=== PATIENT | male | born 1970 | race Caucasian/White ===

== ENCOUNTER 2017-05-27 16:17 | Emergency (ER) | payer OTHER ==
[2017-05-27 16:17] VITALS: BMI 38.9
[2017-05-27 16:26] VITALS: BP 133/79; PULSE 98; RESP 20; TEMP 98; O2SAT 98
[2017-05-27 17:07] LABS: BASO # 0.1 K/uL (0.0-0.2); EOS # 0.2 K/uL (0.0-0.7); EOS % 2.6 % (0.0-4.0); HEMATOCRIT 47.2 % (35.0-51.0); LYMPH # 3.6 K/uL (1.0-4.3); LYMPH % 42.6 % (20.0-40.0); MEAN CORPUSCULAR HEMOGLOBIN 28.5 pg (27.0-31.0); MEAN CORPUSCULAR HGB CONC 33.2 g/dL (33.0-37.0); MEAN PLATELET VOLUME 10.9 fl (7.2-11.7); MONO # 0.6 K/uL (0.0-0.8); MONO % 7.6 % (0.0-10.0); NEUT # 3.9 K/uL (1.8-7.0); NEUT % 46.2 % (50.0-75.0); NRBC % 0.2 % (0.0-0.0); RED CELL DISTRIBUTION WIDTH 14.7 % (11.5-14.5); WHITE BLOOD COUNT 8.4 K/uL (4.8-10.8)
[2017-05-27 17:16] LABS: ALB/GLOB RATIO 1.4 (1.0-2.1); ALKALINE PHOSPHATASE 74 U/L (38-126); ALT/SGPT 68 U/L (21-72); AST/SGOT 41 U/L (17-59); BILIRUBIN,TOTAL 0.6 mg/dl (0.2-1.3); BLOOD UREA NITROGEN 18 mg/dl (9-20); CALCIUM 9.2 mg/dL (8.4-10.2); CARBON DIOXIDE 21 mmol/L (22-30); CHLORIDE 108 mmol/L (98-107); GFR AFRICAN-AMERICAN > 60; GLUCOSE,RANDOM 152 mg/dL (75-110); POTASSIUM 4.5 MMOL/L (3.6-5.0); SODIUM 139 mmol/l (132-148); TOTAL PROTEIN 7.1 G/DL (6.3-8.2)
--- NOTE | 2017-05-27 17:28 | RAD ---
HISTORY: chest pain/ r/o infiltrate COMPARISON: Comparison chest 07/30/2016 TECHNIQUE: Chest PA and lateral FINDINGS: LUNGS: Poor inspiration with low lung volumes, crowded bronchovascular markings and minor bibasilar atelectasis PLEURA: No significant pleural effusion identified. No pneumothorax apparent. CARDIOVASCULAR: Normal. OSSEOUS STRUCTURES: Minor multilevel degenerative spondylosis of the thoracic spine. VISUALIZED UPPER ABDOMEN: Normal. OTHER FINDINGS: None. IMPRESSION: Poor inspiration with low lung volumes, crowded bronchovascular markings and minor bibasilar atelectasis
--- NOTE | 2017-05-27 18:48 | ED PDOC ---
HPI: Chest Pain Time Seen by Provider: 05/27/17 16:28 Chief Complaint (Nursing): Chest Pain Chief Complaint (Provider): chest pain History Per: Patient, C T Tech (Andie Soler) History/Exam Limitations: no limitations Onset/Duration Of Symptoms: Days (5+) Current Symptoms Are (Timing): Intermittent Episodes Context: Food Quality: Sharp Associated Symptoms: denies: Nausea, Dyspnea, Diaphoresis Exacerbating Factors: Other (swallowing) Additional Complaint(s): 47yo male c/o chest pain radiating to epigastrum, associated with occassional dyspnea and pain / difficulty swallowing. Denies syncope, fever, cough or dizziness. States had full physical exam within last year including EKG. +smoker. Drives for a living. Past Medical History Reviewed: Historical Data, Nursing Documentation, Vital Signs Vital Signs: Last Vital Signs Temp 98.0 F 05/27/17 18:35 Pulse 98 H 05/27/17 18:35 Resp 20 05/27/17 18:35 BP 133/79 05/27/17 18:35 Pulse Ox 98 05/27/17 18:35 - Medical History PMH: No Chronic Diseases Denies: Chronic Kidney Disease - Surgical History Surgical History: Hernia Repair - Family History Family History: States: Unknown Family Hx - Social History Current smoker - smoking cessation education provided: Yes Drugs: Denies - Home Medications Home Medications: Ambulatory Orders Medication Instructions Recorded Naproxen 500 mg PO BID PRN #30 ect 07/02/16 Ibuprofen [Motrin] 600 mg PO TID PRN #30 tab 07/30/16 diaZEpam [Valium] 5 mg PO Q8 PRN #12 tab 07/30/16 traMADol [Ultram] 50 mg PO Q8 PRN #12 tab 07/30/16 - Allergies Allergies/Adverse Reactions: Allergies Allergy/AdvReac Type Severity Reaction Status Date / Time No Known Allergies Allergy Verified 07/30/16 11:20 Review of Systems ROS Statement: Except As Marked, All Systems Reviewed And Found Negative Constitutional: Negative for: Fever, Chills Cardiovascular: Positive for: Chest Pain. Negative for: Palpitations Respiratory: Negative for: Cough, Shortness of Breath Gastrointestinal: Positive for: Abdominal Pain (epigastric). Negative for: Nausea, Vomiting Genitourinary Male: Negative for: Dysuria, Frequency Musculoskeletal: Negative for: Neck Pain Skin: Negative for: Rash, Lesions, Jaundice Neurological: Negative for: Weakness, Numbness Physical Exam - Reviewed Nursing Documentation Reviewed: Yes Vital Signs Reviewed: Yes - Physical Exam Appears: Positive for: Well (obese), Non-toxic, No Acute Distress Head Exam: Positive for: ATRAUMATIC, NORMAL INSPECTION, NORMOCEPHALIC Skin: Positive for: Normal Color, Warm, DRY Eye Exam: Positive for: EOMI, Normal appearance, PERRL ENT: Positive for: Normal ENT Inspection Neck: Positive for: Normal, Painless ROM Cardiovascular/Chest: Positive for: Regular Rate, Rhythm Respiratory: Positive for: CNT, Normal Breath Sounds Gastrointestinal/Abdominal: Positive for: Normal Exam, Bowel Sounds, Soft, Other (small ventral hernia). Negative for: Tenderness, Guarding Back: Positive for: Normal Inspection Extremity: Positive for: Normal ROM Neurologic/Psych: Positive for: Alert, Oriented - Laboratory Results Result Diagrams: 05/27/17 17:00 05/27/17 17:00 - ECG O2 Sat by Pulse Oximetry: 98 Medical Decision Making Medical Decision Making: workup initiated for atypical chest pain and difficulty swallowing. Bloodwork, CXR, labs. labs reviewed, clinically unremarkable. Trop neg. Given difficulty swallowing obtain CT chest r/o esophageal lesion. May need GI eval as outpt if CT neg. Disposition - Clinical Impression Clinical Impression: Chest pain - Patient ED Disposition Is Patient to be Admitted: Transfer of Care - Disposition Disposition: Transfer of Care Disposition Time: 18:50 Condition: STABLE Forms: Eat (German) Patient Signed Over To: Ezequiel Higgins Handoff Comments: pending CT chest/ dispo/ dx
--- NOTE | 2017-05-27 19:22 | ED PDOC ---
- Laboratory Results Result Diagrams: 05/27/17 17:00 05/27/17 17:00 - ECG O2 Sat by Pulse Oximetry: 98 - CT Scan/US CT chest Other Rad Studies (CT/US): Read By Radiologist, Radiology Report Reviewed (see MDM section for findings) Medical Decision Making Medical Decision Makin:00 Patient is signed out to me by Chago Mohan III, MD pending CT chest, reevaluation, and final disposition. 21:04 CT chest read and reviewed by radiologist FINDINGS: Lungs: No consolidation. Minimal linear atelectasis/scarring. 0.3 cm nodule vs focal scarring LEFT upper lobe. Pleural space: No pneumothorax. No significant effusion. Heart: No cardiomegaly. No significant pericardial effusion. Bones/joints: No acute fracture. Soft tissues: Unremarkable. Vasculature: Unremarkable. No aneurysm. Lymph nodes: No pathologically enlarged lymph nodes. Liver: Fatty infiltration. IMPRESSION: 1. No definite acute cardiopulmonary disease. 2. Pulmonary nodule. For low-risk patients, no follow-up is necessary. For high- risk patients (smoking history or other known risk factors) an optional CT at 12 months could be performed. 3. Incidental/non-acute findings are described above 21:[address] findings at length to patient. Patient is a smoker. Advised patient to seek repeat CT chest in 12x months by interpreting radiologist given patient's smoker history. Patient will follow up with his PMD Javed Alicea MD, and patient will be provided gastrointenstinal referral given nature of the chest pain. Patient is diagnosed with atypical chest pain and is stable for discharge. Scribe Attestation: Documented by Gloria Plata, acting as a scribe for Ezequiel Higgins MD. Provider Scribe Attestation: All medical record entries made by the Scribe were at my direction and personally dictated by me. I have reviewed the chart and agree that the record accurately reflects my personal performance of the history, physical exam, medical decision making, and the department course for this patient. I have also personally directed, reviewed, and agree with the discharge instructions and disposition. Disposition - Clinical Impression Clinical Impression: Atypical chest pain - POA Present On Arrival: None - Disposition Referrals: James Perry MD [Staff Provider] - Disposition: Routine/Home Disposition Time: 21:19 Condition: STABLE Instructions: Noncardiac Chest Pain (ED) Forms: [facility] (Iranian), [facility] (Argentine) Print Language: TUVALU[place]
[2017-05-27] MEDS ORDERED: Iohexol 300 100 ML IJ ONE (20:02)
[2017-05-27] MEDS ORDERED: Sodium Chloride 0.9% 50 ML IV ONE (20:03)
--- NOTE | 2017-05-27 21:05 | CT ---
EXAM: CT Chest With Intravenous Contrast CLINICAL HISTORY: 47 years old, male; Pain; Other: Chest pain, dysphagia; Prior surgery; Surgery date: 6+ months; Surgery type: Lt clavicle SX due to trauma; Patient HX: Smoker x around 20 yrs TECHNIQUE: Axial computed tomography images of the chest with intravenous contrast. All CT scans at this facility use one or more dose reduction techniques, viz.: automated exposure control; ma/kV adjustment per patient size (including targeted exams where dose is matched to indication; i.e. head); or iterative reconstruction technique. MIP reconstructed images were created and reviewed. Coronal and sagittal reformatted images were created and reviewed. CONTRAST: 98 mL of OMNIPAQUE administered intravenously. COMPARISON: CR - CHEST TWO VIEWS (PA/LAT) 05/27/2017 5:07:36 PM FINDINGS: Lungs: No consolidation. Minimal linear atelectasis/scarring. 0.3 cm nodule vs focal scarring LEFT upper lobe. Pleural space: No pneumothorax. No significant effusion. Heart: No cardiomegaly. No significant pericardial effusion. Bones/joints: No acute fracture. Soft tissues: Unremarkable. Vasculature: Unremarkable. No aneurysm. Lymph nodes: No pathologically enlarged lymph nodes. Liver: Fatty infiltration. IMPRESSION: 1. No definite acute cardiopulmonary disease. 2. Pulmonary nodule. For low-risk patients, no follow-up is necessary. For high-risk patients (smoking history or other known risk factors) an optional CT at 12 months could be performed. 3. Incidental/non-acute findings are described above.
--- NOTE | 2017-05-28 13:17 | CARD ---
APPROVED REPORT EKG Measurement Heart [id number] <Conclusion> Normal sinus rhythm with sinus arrhythmia Incomplete RBBB Prolonged QT Abnormal ECG
== END 2017-05-27 22:00 | disposition home or self-care (01) ==
LOC: H.ER 16:17
DX: R07.89 Other chest pain (principal); Z87.891 Personal history of nicotine dependence
CPT/HCPCS: 71020; 71260; 80053; 84484; 85025; 93005; 96374; 99283; Q9967